=== PATIENT | male | born 1950 | race Caucasian/White ===

== ENCOUNTER → 2024-03-17 08:58 | Outpatient (REF) | payer MEDICARE, SELFPAY | LOC: RAD 08:58 | PROVIDERS: ATTENDING PHYSICIAN Physician Assistant Medical | DX: J44.9 Chronic obstructive pulmonary disease, unspecified (principal); R61 Generalized hyperhidrosis | CPT/HCPCS: 71046 ==

== ENCOUNTER → 2024-03-24 12:17 | Outpatient (REF) | payer MEDICARE, SELFPAY | LOC: HWRCS 12:17 | PROVIDERS: ATTENDING PHYSICIAN Physician Assistant Medical | DX: R00.2 Palpitations (principal) | CPT/HCPCS: 93225; 93226; 93306 ==